=== PATIENT | male | born 1935 | race Caucasian/White ===

== ENCOUNTER → 2019-04-29 08:52 | Outpatient (CLI) | payer MEDICARE, OTHER ==
[2011-01-09 10:38] VITALS: BMI 28.0
== END | disposition home or self-care (01) ==
LOC: D.US 08:52
PROVIDERS: ATTEND Family Medicine
DX: N18.9 Chronic kidney disease, unspecified (principal)

== ENCOUNTER → 2019-08-12 19:29 | Outpatient (CLI) | payer MEDICARE, OTHER ==
[2011-01-09 10:38] VITALS: BMI 28.0
== END | disposition home or self-care (01) ==
LOC: D.LABREF 19:29
PROVIDERS: ATTEND Urology
DX: R31.9 Hematuria, unspecified (principal)

== ENCOUNTER 2021-03-05 19:04 | Emergency (ER) | payer MEDICARE ==
[~2021-03-05] VITALS: Ht 177.8 cm; Wt 81.2 kg
[2021-03-05 19:11] VITALS: BP 142/87; Ht 177.8 cm; Wt 81.2 kg
[2021-03-05] MEDS ORDERED: GLUCOPHAGE500 MG PO (19:15)
[2021-03-05] MEDS ORDERED: LIPITOR40 MG PO (19:16)
[2021-03-05] MEDS ORDERED: PLAVIX75 MG PO (19:16)
[2021-03-05] MEDS ORDERED: ZESTRIL10 MG PO (19:16)
[2021-03-05] MEDS ORDERED: NORVASC5 MG PO (19:16)
[2021-03-05] MEDS ORDERED: LISINOPRIL10 MG PO (19:16)
[2021-03-05] MEDS ORDERED: ASPIRIN325 MG PO (19:17)
[2021-03-05 19:32] LABS: BASOPHILS 0.7 % (0-2); HEMATOCRIT 41.1 % (42.0-54.0); HEMOGLOBIN 13.7 g/dL (13.5-17.5); IMMATURE GRANULOCYTES 0.1 % (0-5); LYMPHOCYTE ABS# 1.99 10x3/uL (1.32-3.57); LYMPHOCYTES 21.6 % (15-50); MCH 31.4 pg (26.0-34.0); MCHC 33.3 g/dL (31.0-37.0); MCV 94.3 fL (80.0-100.0); MEAN PLATELET VOLUME 10.2 fL (7.4-10.4); MONOCYTES 10.8 % (2-11); NEUTROPHIL ABS# 5.62 10x3/uL (1.78-5.38); NEUTROPHILS 60.8 % (40-80); RBC 4.36 10x6/uL (4.20-6.10); RDW 12.6 % (11.5-14.5); WBC 9.2 10x3/uL (4.8-10.8)
[2021-03-05 19:34] LABS: PLATELET COUNT 168 10x3/uL (130-400)
[2021-03-05 19:50] LABS: CALCIUM 9.3 mg/dL (8.5-10.1); CARBON DIOXIDE 22.4 mmol/L (21.0-32.0); POTASSIUM - SERUM 5.4 mmol/L (3.5-5.1)
[2021-03-05 19:55] LABS: ALBUMIN 3.2 g/dL (3.4-5.0); BILIRUBIN - TOTAL 0.5 mg/dL (0.2-1.3); PROTEIN - SERUM 7.3 g/dL (6.4-8.2)
[2021-03-05 20:34] LABS: BILIRUBIN NEGATIVE (NEGATIVE); KETONE NEGATIVE (NEGATIVE); NITRITE NEGATIVE (NEGATIVE); UROBILINOGEN NORMAL mg/dL (< 2)
[2021-03-05 20:36] LABS: BACTERIA FEW HPF (NONE SEEN); WHITE CELLS - URINE 3 HPF (0-1)
== END 2021-03-05 21:50 | disposition home or self-care (01) ==
LOC: D.ER 19:04
PROVIDERS: Family Medicine
DX: R10.32 Left lower quadrant pain (principal); E11.9 Type 2 diabetes mellitus without complications; Z86.73 Personal history of transient ischemic attack (TIA), and cerebral infarction without residual deficits; I10 Essential (primary) hypertension; Z79.84 Long term (current) use of oral hypoglycemic drugs

== ENCOUNTER → 2021-03-16 09:30 | Outpatient (CLI) | payer OTHER ==
[2021-03-05 19:11] VITALS: BMI 28.0
[~2021-03-16 09:30] MED LIST: ASPIRIN325 MG PO; GLUCOPHAGE500 MG PO; LIPITOR40 MG PO; LISINOPRIL10 MG PO; NORVASC5 MG PO; PLAVIX75 MG PO; ZESTRIL10 MG PO
== END | disposition home or self-care (01) ==
LOC: D.MRI 09:30
PROVIDERS: ATTEND Family Medicine
DX: M54.16 Radiculopathy, lumbar region (principal)